=== PATIENT | male | born 1955 | race African-American/Black ===

== ENCOUNTER 2016-12-27 14:55 | Emergency (ER) | payer BC ==
[~2016-12-27] VITALS: Ht 172.7 cm; Wt 90.4 kg
[~2016-12-27 14:55] MED LIST: AMLODIPINE BESY10 MG PO; ATENOLOL25 MG PO; BENTYL20 MG PO; CITRATE OF MAG296 ML PO; HYDROCHLOROTH12.5 M3 PO; HYDROCODON-ACE1 EAC7 PO; LISINOPRIL20 MG PO; MOTRIN800 MG PO; NAPROSYN500 MG PO; NEXAVAR200 MG PO; NOHOMEMEDS; PRINIVIL20 MG PO; ZOFRAN4 MG PO
[2016-12-27 16:58] LABS: CHLORIDE 103 mEq/L (99-109); POTASSIUM 4.6 mEq/L (3.7-5.4); SODIUM 137 mEq/L (136-147)
[2016-12-27 17:00] LABS: GLUCOSE 104 mg/dL (70-99)
[2016-12-27 17:02] LABS: ANION GAP 11 MEQ/L (2-14); TOTAL BILIRUBIN 0.9 mg/dL (0.0-1.0)
[2016-12-27 17:04] LABS: ALKALINE PHOSPHATASE 83 IU/L (3-129); GFR ESTIMATE (CALCULATED) > 59 mL/min/
[2016-12-27 17:05] LABS: EOSINOPHIL (%) 0.3 % (0-5); HEMATOCRIT 49.9 % (38.0-50.0); IMMATURE GRANULOCYTE (%) 0.5 % (0.0-0.7); IMMATURE GRANULOCYTE COUNT 0.1 K/uL; INSTRUMENT ABS NEUTROPHIL CT 7.6 K/uL; LYMPHOCYTE COUNT 1.6 K/uL (1.0-2.8); MCH 28.1 PG (29.0-34.0); MCHC 33.7 G/DL (30.0-36.0); MCV 83.4 FL (86-99); MONOCYTE (%) 8.2 % (3-12); MONOCYTE COUNT 0.8 K/uL (0-0.8); NEUTROPHIL (%) 74.7 % (45-76); NEUTROPHIL COUNT 7.6 K/uL (1.8-6.4); PLATELET COUNT 156 K/uL (156-360); RBC DIS.WIDTH-CV 14.6 % (11.8-14.6); RBC DIS.WIDTH-SD 44.2 % (39-53); RED BLOOD COUNT 5.98 M/uL (4.00-5.50); WHITE BLOOD COUNT 10.1 K/uL (4.1-10.2)
[2016-12-27 17:05] LABS: UREA NITROGEN (BUN) 12 mg/dL (9-23)
[2016-12-27 17:07] LABS: LIPASE 9 U/L (1.0-51.0)
[2016-12-27 17:39] LABS: ADD MIUA? YES; BILIRUBIN NEGATIVE; BLOOD MODERATE; COLOR YELLOW ((YELLOW)); GLUCOSE (STRIP) NEGATIVE; KETONES NEGATIVE; LEUKOCYTES NEGATIVE; NITRITE NEGATIVE; PROTEIN (STRIP) 100; SPECIFIC GRAVITY 1.015 (1.000-1.030); UROBILINOGEN 0.2 MG/DL (0.2-1.0)
[2016-12-27 17:52] LABS: BACTERIA RARE /HPF; EPITHELIAL CELLS NONE SEEN /HPF; HYALINE CASTS 0-5 /LPF; MUCUS TRACE /LPF; WHITE BLOOD CELLS 0-5 /HPF (0-5)
[2016-12-27] MEDS ORDERED: PHENERGAN25 MG PR (17:53)
[2016-12-27] MEDS ORDERED: PROMETHAZINE HC25 M1 PO (17:53)
[2016-12-27] MEDS ORDERED: BENTYL20 MG PO (17:53)
[2016-12-27 18:16] VITALS: BP 142/102
[2016-12-28] MEDS ORDERED: ENULOSE10 GM/15 M PO (07:42)
[2016-12-28] MEDS ORDERED: DONNATAL1 TABLET PO (07:42)
== END 2016-12-27 18:17 | disposition home or self-care (01) ==
LOC: EME 14:55
PROVIDERS: Physician Assistant
DX: K52.9 Noninfective gastroenteritis and colitis, unspecified (principal); J45.909 Unspecified asthma, uncomplicated; I10 Essential (primary) hypertension; I25.2 Old myocardial infarction; K21.9 Gastro-esophageal reflux disease without esophagitis; K74.60 Unspecified cirrhosis of liver; B19.20 Unspecified viral hepatitis C without hepatic coma; F17.200 Nicotine dependence, unspecified, uncomplicated
CPT/HCPCS: 74176; 80053; 81003; 83690; 85025; 99281; 99283; J3010

== ENCOUNTER 2016-12-28 05:28 | Emergency (ER) | payer BC ==
[~2016-12-28] VITALS: Ht 172.7 cm; Wt 91.9 kg
[~2016-12-28 05:28] MED LIST changes: +PHENERGAN25 MG PR; +PROMETHAZINE HC25 M1 PO
[2016-12-28 05:59] LABS: HEMATOCRIT 48.6 % (38.0-50.0); MCV 82.5 FL (86-99); MEAN PLAT.VOLUME 11.7 uM^3 (9.0-12.4); PLATELET COUNT 144 K/uL (156-360); RBC DIS.WIDTH-CV 14.5 % (11.8-14.6); RBC DIS.WIDTH-SD 43.4 % (39-53); RED BLOOD COUNT 5.89 M/uL (4.00-5.50); WHITE BLOOD COUNT 9.8 K/uL (4.1-10.2)
[2016-12-28 06:10] LABS: CHLORIDE 100 mEq/L (99-109); POTASSIUM 3.8 mEq/L (3.7-5.4); SODIUM 137 mEq/L (136-147)
[2016-12-28 06:13] LABS: GLUCOSE 116 mg/dL (70-99)
[2016-12-28 06:14] LABS: ANION GAP 11 MEQ/L (2-14)
[2016-12-28 06:16] LABS: ALKALINE PHOSPHATASE 79 IU/L (3-129); GFR ESTIMATE (CALCULATED) > 59 mL/min/; TOTAL BILIRUBIN 1.3 mg/dL (0.0-1.0)
[2016-12-28 06:17] LABS: UREA NITROGEN (BUN) 12 mg/dL (9-23)
[2016-12-28 06:28] LABS: ADD MIUA? YES; BILIRUBIN NEGATIVE; BLOOD SMALL; COLOR YELLOW ((YELLOW)); GLUCOSE (STRIP) NEGATIVE; KETONES NEGATIVE; LEUKOCYTES NEGATIVE; NITRITE NEGATIVE; PROTEIN (STRIP) 100; SPECIFIC GRAVITY 1.015 (1.000-1.030); UROBILINOGEN 0.2 MG/DL (0.2-1.0)
[2016-12-28 06:33] LABS: BACTERIA NONE SEEN /HPF; EPITHELIAL CELLS NONE SEEN /HPF; MUCUS TRACE /LPF; RED BLOOD CELLS 0-5 /HPF (0-5); UCUL ADDED? NO; WHITE BLOOD CELLS 0-5 /HPF (0-5)
[2016-12-28] MEDS ORDERED: DONNATAL1 TABLET PO (07:42)
[2016-12-28] MEDS ORDERED: ENULOSE10 GM/15 M PO (07:42)
[2016-12-28 08:09] VITALS: BP 176/114
== END 2016-12-28 08:10 | disposition home or self-care (01) ==
LOC: EME 05:28
DX: R10.9 Unspecified abdominal pain (principal); K59.00 Constipation, unspecified; I10 Essential (primary) hypertension; F17.200 Nicotine dependence, unspecified, uncomplicated
CPT/HCPCS: 80053; 81003; 85027; 99281; 99284; J2270; J2405; J7040

== ENCOUNTER 2016-12-30 05:49 | Emergency (ER) | payer BC ==
[~2016-12-30] VITALS: Ht 172.7 cm; Wt 93.0 kg
[~2016-12-30 05:49] MED LIST changes: +DONNATAL1 TABLET PO; +ENULOSE10 GM/15 M PO
[2016-12-30 07:13] LABS: EOSINOPHIL (%) 0.8 % (0-5); EOSINOPHIL COUNT 0.1 K/uL (0-0.3); HEMATOCRIT 46.9 % (38.0-50.0); IMMATURE GRANULOCYTE (%) 0.5 % (0.0-0.7); IMMATURE GRANULOCYTE COUNT 0.1 K/uL; INSTRUMENT ABS NEUTROPHIL CT 8.9 K/uL; LYMPHOCYTE COUNT 1.1 K/uL (1.0-2.8); MCH 28.2 PG (29.0-34.0); MCHC 33.3 G/DL (30.0-36.0); MCV 84.7 FL (86-99); MEAN PLAT.VOLUME 11.8 uM^3 (9.0-12.4); MONOCYTE (%) 6.3 % (3-12); MONOCYTE COUNT 0.7 K/uL (0-0.8); NEUTROPHIL (%) 82.3 % (45-76); NEUTROPHIL COUNT 8.9 K/uL (1.8-6.4); PLATELET COUNT 128 K/uL (156-360); RBC DIS.WIDTH-CV 14.5 % (11.8-14.6); RBC DIS.WIDTH-SD 44.4 % (39-53); RED BLOOD COUNT 5.54 M/uL (4.00-5.50); WHITE BLOOD COUNT 10.8 K/uL (4.1-10.2)
[2016-12-30 07:22] LABS: CHLORIDE 102 mEq/L (99-109); POTASSIUM 4.1 mEq/L (3.7-5.4); SODIUM 137 mEq/L (136-147)
[2016-12-30 07:24] LABS: GLUCOSE 112 mg/dL (70-99)
[2016-12-30 07:26] LABS: ANION GAP 7 MEQ/L (2-14)
[2016-12-30 07:28] LABS: ALKALINE PHOSPHATASE 74 IU/L (3-129); GFR ESTIMATE (CALCULATED) > 59 mL/min/; TOTAL BILIRUBIN 0.7 mg/dL (0.0-1.0)
[2016-12-30 07:29] LABS: UREA NITROGEN (BUN) 12 mg/dL (9-23)
[2016-12-30] MEDS ORDERED: CITRATE OF MAG296 ML PO (09:26)
[2016-12-30 10:25] VITALS: BP 185/117
[2016-12-31] MEDS ORDERED: ZOFRAN4 MG PO (02:03)
== END 2016-12-30 10:27 | disposition home or self-care (01) ==
LOC: EME 05:49
PROVIDERS: Emergency Medicine
DX: K59.00 Constipation, unspecified (principal); R10.9 Unspecified abdominal pain; C22.9 Malignant neoplasm of liver, not specified as primary or secondary; Z79.899 Other long term (current) drug therapy; J45.909 Unspecified asthma, uncomplicated; I10 Essential (primary) hypertension; I25.2 Old myocardial infarction; K21.9 Gastro-esophageal reflux disease without esophagitis; K74.60 Unspecified cirrhosis of liver; B19.20 Unspecified viral hepatitis C without hepatic coma; F17.200 Nicotine dependence, unspecified, uncomplicated
CPT/HCPCS: 74020; 80053; 85025; 99281; 99284

== ENCOUNTER 2016-12-30 17:58 | Emergency (ER) | payer BC ==
[~2016-12-30] VITALS: Ht 172.7 cm; Wt 91.6 kg
[2016-12-30 21:29] LABS: MCH 28.2 PG (29.0-34.0); MCHC 33.9 G/DL (30.0-36.0); MCV 83.3 FL (86-99); MEAN PLAT.VOLUME 12.1 uM^3 (9.0-12.4); PLATELET COUNT 134 K/uL (156-360); RBC DIS.WIDTH-CV 14.4 % (11.8-14.6); RBC DIS.WIDTH-SD 43.7 % (39-53); RED BLOOD COUNT 5.88 M/uL (4.00-5.50); WHITE BLOOD COUNT 11.1 K/uL (4.1-10.2)
[2016-12-30 21:49] LABS: CHLORIDE 99 mEq/L (99-109); POTASSIUM 3.7 mEq/L (3.7-5.4); SODIUM 139 mEq/L (136-147)
[2016-12-30 21:52] LABS: GLUCOSE 103 mg/dL (70-99)
[2016-12-30 21:53] LABS: ANION GAP 9 MEQ/L (2-14)
[2016-12-30 21:55] LABS: ALKALINE PHOSPHATASE 79 IU/L (3-129); GFR ESTIMATE (CALCULATED) > 59 mL/min/
[2016-12-30 21:56] LABS: UREA NITROGEN (BUN) 9 mg/dL (9-23)
[2016-12-30 22:08] LABS: ADD MIUA? YES; BILIRUBIN NEGATIVE; BLOOD SMALL; COLOR YELLOW ((YELLOW)); GLUCOSE (STRIP) NEGATIVE; KETONES 5; LEUKOCYTES NEGATIVE; NITRITE NEGATIVE; PROTEIN (STRIP) 100; SPECIFIC GRAVITY 1.013 (1.000-1.030); UROBILINOGEN 0.2 MG/DL (0.2-1.0)
[2016-12-30 22:25] LABS: LIPASE 9 U/L (1.0-51.0)
[2016-12-30 22:33] LABS: BACTERIA NONE SEEN /HPF; EPITHELIAL CELLS NONE SEEN /HPF; MUCUS TRACE /LPF; UCUL ADDED? NO; WHITE BLOOD CELLS 0-5 /HPF (0-5)
[2016-12-31] MEDS ORDERED: ZOFRAN4 MG PO (02:03)
[2016-12-31 02:13] VITALS: BP 169/102
== END 2016-12-31 02:20 | disposition home or self-care (01) ==
LOC: EME 17:58
PROVIDERS: Emergency Medicine
DX: R10.11 Right upper quadrant pain (principal); R16.0 Hepatomegaly, not elsewhere classified; K74.60 Unspecified cirrhosis of liver; J45.909 Unspecified asthma, uncomplicated; B18.2 Chronic viral hepatitis C; I10 Essential (primary) hypertension; K21.9 Gastro-esophageal reflux disease without esophagitis; I25.2 Old myocardial infarction; F17.200 Nicotine dependence, unspecified, uncomplicated; F10.10 Alcohol abuse, uncomplicated
CPT/HCPCS: 74177; 76705; 80053; 81003; 83605; 83690; 85027; 93005; 99281; 99284

== ENCOUNTER 2017-05-04 03:32 | Emergency (ER) | payer OTHER ==
[~2017-05-04] VITALS: Ht 172.7 cm; Wt 93.2 kg
[2017-05-04] MEDS ORDERED: PROGRAF1 MG PO (03:46)
[2017-05-04] MEDS ORDERED: PREDNISONE5 MG PO (03:47)
[2017-05-04] MEDS ORDERED: MYFORTIC360 MG PO (03:47)
[2017-05-04] MEDS ORDERED: VALCYTE450 MG PO (03:48)
[2017-05-04] MEDS ORDERED: ASPIR 8181 M1 PO (03:49)
[2017-05-04] MEDS ORDERED: BACTRIM,SEPT1 TABLE1 PO (03:49)
[2017-05-04] MEDS ORDERED: DIFLUCAN100 MG PO (03:49)
[2017-05-04] MEDS ORDERED: COLACE100 MG PO (03:50)
[2017-05-04] MEDS ORDERED: BARACLUDE0.5 MG PO (03:50)
[2017-05-04] MEDS ORDERED: OXYCODONE HCL10 MG PO (03:51)
[2017-05-04] MEDS ORDERED: PROTONIX40 MG PO (03:51)
[2017-05-04] MEDS ORDERED: SENNA-EXTRA17.2 MG PO (03:51)
[2017-05-04] MEDS ORDERED: LASIX40 MG PO (03:52)
[2017-05-04] MEDS ORDERED: MAGNESIUM400 M1 PO (03:52)
[2017-05-04] MEDS ORDERED: FOLIC ACID1 MG PO (03:52)
[2017-05-04] MEDS ORDERED: DAILY VALUE1 EACH PO (03:53)
[2017-05-04] MEDS ORDERED: MIRALAX17 GM PO (03:53)
[2017-05-04 04:20] LABS: HEMATOCRIT 32.9 % (38.0-50.0); MCH 29.5 PG (29.0-34.0); MCV 84.4 FL (86-99); MEAN PLAT.VOLUME 10.8 uM^3 (9.0-12.4); PLATELET COUNT 195 K/uL (156-360); RBC DIS.WIDTH-CV 15.2 % (11.8-14.6); RBC DIS.WIDTH-SD 45.5 % (39-53)
[2017-05-04 04:32] LABS: CHLORIDE 102 mEq/L (99-109); POTASSIUM 4.4 mEq/L (3.7-5.4); SODIUM 135 mEq/L (136-147)
[2017-05-04 04:35] LABS: ANION GAP 9 MEQ/L (2-14)
[2017-05-04 04:36] LABS: TOTAL BILIRUBIN 0.6 mg/dL (0.0-1.0)
[2017-05-04 04:38] LABS: ALKALINE PHOSPHATASE 168 IU/L (3-129); GFR ESTIMATE (CALCULATED) > 59 mL/min/; GLUCOSE 115 mg/dL (70-99)
[2017-05-04 04:39] LABS: UREA NITROGEN (BUN) 30 mg/dL (9-23)
[2017-05-04 04:41] LABS: LIPASE 29 U/L (1.0-51.0)
[2017-05-04 04:50] LABS: ADD MIUA? NO; BILIRUBIN NEGATIVE; BLOOD NEGATIVE; COLOR YELLOW ((YELLOW)); GLUCOSE (STRIP) NEGATIVE; KETONES NEGATIVE; LEUKOCYTES NEGATIVE; NITRITE NEGATIVE; PROTEIN (STRIP) 30; SPECIFIC GRAVITY 1.019 (1.000-1.030); UCUL ADDED? NO
[2017-05-04 06:14] VITALS: BP 164/106
== END 2017-05-04 06:15 | disposition home or self-care (01) ==
LOC: EME 03:32
PROVIDERS: Emergency Medicine
DX: G89.18 Other acute postprocedural pain (principal); R74.0 Nonspecific elevation of levels of transaminase and lactic acid dehydrogenase [LDH]; N28.9 Disorder of kidney and ureter, unspecified; D64.9 Anemia, unspecified; Z94.4 Liver transplant status; I25.2 Old myocardial infarction; I10 Essential (primary) hypertension; Z86.73 Personal history of transient ischemic attack (TIA), and cerebral infarction without residual deficits; K21.9 Gastro-esophageal reflux disease without esophagitis; F17.200 Nicotine dependence, unspecified, uncomplicated; J45.909 Unspecified asthma, uncomplicated; Z86.19 Personal history of other infectious and parasitic diseases
CPT/HCPCS: 71010; 74177; 80053; 81003; 83605; 83690; 85027; 87040; 99281; 99285; J2270; J2405; J7030; Q0169